=== PATIENT | female | born 1990 | race Caucasian/White ===

== ENCOUNTER → 2019-11-20 13:45 | Outpatient (CLI) | payer BC, SELFPAY ==
--- NOTE | ~2019-11-20 | US_ITS ---
EXAMINATION: US OB transvaginal EXAM DATE: 11/20/2019 14:13 INDICATION: , vaginal spotting. First trimester. TECHNIQUE: Pelvic obstetrical transabdominal sonogram was performed by a technologist. There are mu ltiple grayscale and Doppler images available for interpretation. There are no earlier studies of th is gestation for comparison. FINDINGS: Uterus measures 9.5 x 5.0 x 6.0 cm. There is intrauterine gestation sac. pole with heart rate confirmed at 169 beats per minute. The 1.4 cm crown-rump length corresponds to estimated gestational age by ultrasound of 7 weeks 4 days, estimated date of confinement 07/04/2020. Yolk sac is identified. There is small subchorionic hemorrhage measuring 5 x 4 x 5 mm. The ovaries are morp hologically normal. IMPRESSION: Early live intrauterine gestation, small subchorionic hemorrhage. Reviewed, dictated and finalized at location A.
== END ==
PROVIDERS: Visit Provider Nurse Practitioner
DX: O26.851 Spotting complicating pregnancy, first trimester (principal); O36.8911 Maternal care for other specified fetal problems, first trimester, fetus 1
CPT/HCPCS: 76817

== ENCOUNTER 2019-11-20 14:27 | Outpatient (RCR) | payer BC, SELFPAY | END 2020-02-18 23:59 | disposition home or self-care (01) | LOC: ANHLAB 14:27 | PROVIDERS: Visit Provider Nurse Practitioner | DX: O26.851 Spotting complicating pregnancy, first trimester (principal); Z3A.00 Weeks of gestation of pregnancy not specified | CPT/HCPCS: 36415; 86900; 86901 ==

== ENCOUNTER → 2019-12-05 14:15 | Outpatient (CLI) | payer BC, SELFPAY ==
--- NOTE | ~2019-12-05 | US_ITS ---
EXAMINATION: US OB transvaginal DATE: 12/05/2019 15:38 INDICATION: Follow-up subchorionic hemorrhage TECHNIQUE: Real-time transabdominal and transvaginal obstetric ultrasound. FINDINGS: Comparison ultrasound dated 11/20/2019 The uterus measures 10 x 6 x 7.3 cm. There is an intrauterine gestational sac, with pole identi fied. The crown rump length measures 3.07 cm. heart tones are identified measuring 176 BPM. No evidence for residual subchorionic hemorrhage. Left ovary is unremarkable measuring 3.6 x 1.8 x 1. 9 cm. IMPRESSION: 1. SL IUP with an EGA of 9 weeks, 5 days (EDC by initial ultrasound of 07/04/2020). Appropriate inter daisy growth. 2: Interval resolution of subchorionic hemorrhage. Reviewed, dictated and finalized at location A. IMPRESSION: 1. SL IUP with an EGA of 9 weeks, 5 days (EDC by initial ultrasound of 07/04/20 20). Appropriate interval growth. 2: Interval resolution of subchorionic hemorrhage.
== END ==
PROVIDERS: Visit Provider Obstetrics & Gynecology
DX: O36.8910 Maternal care for other specified fetal problems, first trimester, not applicable or unspecified (principal); Z3A.09 9 weeks gestation of pregnancy
CPT/HCPCS: 76817

== ENCOUNTER 2020-02-05 10:17 | Outpatient (CLI) | payer BC, SELFPAY ==
--- NOTE | ~2020-02-05 | US_ITS ---
EXAMINATION: US OB /maternal detail DATE: 02/05/2020 11:32 INDICATION: anatomic survey. TECHNIQUE: Real-time ultrasound of the pelvis was performed. COMPARISON: Ultrasound 12/05/2019, 11/20/2019 FINDINGS: There is a single living fetus in vertex presentation. The placenta is posterior. heart rate i s 121 beats per minute (bpm). The amniotic fluid volume is subjectively normal. The following biometric data were obtained: Biparietal diameter (BPD): 4.4 cm; head circumference (HC): 16.6 cm; abdominal circumference (AC): 15 .0 cm; femur length (FL): 3.1 cm. These measurements are concordant. Estimated weight is 314 g +/- 47 g, which correlates with >97th percentile when 07/04/20 is use d as estimated date of delivery. As single measurements, these parameters are each equal to the following estimated gestational ages w ith ranges of +/- 2 standard deviations: BPD: 19 weeks 2 days (17 weeks 4 days - 21 weeks 0 days). HC: 19 weeks 2 days (17 weeks 6 days - 20 weeks 6 days). AC: 20 weeks 2 days (18 weeks 1 days - 22 weeks 2 days). FL: 19 weeks 3 days (17 weeks 5 days - 21 weeks 2 days). estimated gestational age based solely on measurements from this exam is 19 weeks 4 days +/- 1 weeks 3 days. The cerebral ventricles, cerebellum, cisterna magna, nuchal fold, and visualized portions of the spin e are normal. The heart is normal. The diaphragm, stomach, kidneys, and bladder are normal. There are two umbilical arteries to yield a 3-vessel cord. The cord insertion is normal. IMPRESSION: 1. Single living fetus in vertex presentation. 2. Large for gestational age. Estimated weight is 314 g +/- 47 g, which correlates with >97th percentile when 07/04/20 is used as estimated date of delivery. This date was set by ultrasound on 06/2020. 3. Normal anatomic survey. Reviewed, dictated and finalized at location A. IMPRESSION: 1. Single living fetus in vertex presentation. 2. Large for gestational age. Estimated weight is 314 g +/- 47 g, which correlates with >97th percentile when 07/04/20 is used as estimated date of riley wu. This date was set by ultrasound on 11/20/2019. 3. Normal anatomic survey.
== END 2020-02-05 10:18 | disposition home or self-care (01) ==
PROVIDERS: Visit Provider Obstetrics & Gynecology
DX: Z34.02 Encounter for supervision of normal first pregnancy, second trimester (principal); Z3A.19 19 weeks gestation of pregnancy
CPT/HCPCS: 76805

== ENCOUNTER 2020-07-05 04:52 | Inpatient (IN) | payer OTHER, SELFPAY ==
[2020-07-05] VITALS (123 sets, daily range): BP systolic 68–136; BP diastolic 45–106; PULSE 61–251; RESP 16–20; TEMP 36.9–37.3; O2SAT 92–100; BMI 33.4
--- NOTE | 2020-07-05 05:16 | LDADM ---
This patient, Reina Evans, was admitted to Labor/Delivery/Recovery 104 on 07/05/20 at 04:52. Plans for labor, pain management and were discussed with patient. Patient/family oriented to hospital policies and general routines including ID bracelet, bed and alarms, visiting hours, pain management, procedures, bathroom and other care routines, personal items, smoking policy, room service/diet and guest tray routines, infant security routines, and visiting hours. Patient/Family are encouraged to report perceived risks to care and to ask questions if they do not understand what they are told or what they should do. See OBIX for further documentation.
[2020-07-05 05:38] LABS: Basophils Absolute Auto 0.1 K/mm3 (0.0-0.1); Basophils Percent Auto 0.4 % (0.2-1.2); Eosinophils Absolute Auto 0.1 K/mm3 (0-0.3); Eosinophils Percent Auto 0.4 % (0-4.4); Hematocrit 37.5 % (37.0-47.0); Hemoglobin 12.1 g/dL (12.0-15.0); Immature Granulocyte Absolute 0.35 K/mm3 (0.00-0.031); Immature Granulocyte Percent A 1.9 % (0-0.5); Lymphocytes Absolute Auto 2.04 K/mm3 (0.9-3.2); Lymphocytes Percent Auto 11.1 % (18.3-44.2); Mean Corpuscular HGB Conc 32.3 g/dl (32-36); Mean Corpuscular Hemoglobin 27.2 pg (26-34); Mean Corpuscular Volume 84.3 fl (80-100); Mean Platelet Volume 10.4 fl (7.4-10.4); Monocytes Absolute Auto 1.2 K/mm3 (0.1-0.6); Monocytes Percent Auto 6.6 % (2.6-8.5); Neutrophils Absolute Auto 14.7 K/mm3 (1.3-6.7); Neutrophils Percent Auto 79.6 % (45.5-73.1); Platelet Count Result 256 k/mm3 (150-375); Red Blood Count 4.45 M/mm3 (4.2-5.4); Red Cell Distribution Width 20.8 % (11.5-14.5); White Blood Count 18.5 K/mm3 (4.5-10.0)
[2020-07-05] MEDS: AMPICILLIN 2 GM/NS 100 ML 2 GM/100 ML BAG IVPB (05:42)
[2020-07-05] MEDS: LACTATED RINGERS 1,000 ML 125 ML IV CONT ×3 (05:42→13:41)
[2020-07-05] MEDS: OXYTOCIN 30 UNITS/NS 500 ML 30 UNITS/500 ML BAG 6 UNITS IV CONT (08:00)
[2020-07-05] MEDS: AMPICILLIN 1 GM/NS 50 ML 1 GM/50 ML BAG IVPB ×3 (10:05→18:05)
--- NOTE | 2020-07-05 10:49 | WPDOBADMIT ---
Obstetrics - Admit Note Admission Note: record reviewed. No pertinent additions to the history and/or any subsequent changes in the physical findings that are not consistent with the expected course of the were found. Additions to the history and/or subsequent changes in the physical findings follow. None.Here for MIL. Cervix now /-2 SROM earlier. FHTS reactive.
[2020-07-05] MEDS: fentaNYL CITRATE INJ (*CRX) 100 MCG/2 ML VIAL IV PUSH (11:24)
[2020-07-05] MEDS: PHENYLEPHRINE 1,000 MCG/10 ML SYRINGE 100 MCG IV PUSH (11:57)
--- NOTE | 2020-07-05 11:57 | WPDANESEPP ---
Anes - Eval Pre Procedure Procedure: Labor Epidural Date/Time: 07/05/20 11:57 Surgeon: Hossein Preop Diagnosis: Labor Pain Pre Op Diagnosis: Induction of Labor Patient Data Age: 30 Gender: F Height: 5 ft 6 in Weight: 94 kg Last Vital Signs Temp 37.1 C 07/05/20 08:49 Pulse 71 07/05/20 11:55 BP 101/53 L 07/05/20 11:55 Pulse Ox 97 07/05/20 11:52 Allergies Allergy/AdvReac Type Severity Reaction Status Date / Time No Known Allergies Allergy Verified 06/05/20 12:36 Home Medications Medication Instructions Recorded Confirmed Type PNV cmb#95-ferrous fumarate-FA 1 tablet PO DAILY 06/05/20 06/05/20 History [] ergocalciferol (vitamin D2) 1,250 mcg PO WEEKLY 06/05/20 06/05/20 History [Vitamin D2] Laboratory Tests 07/05/20 07/05/20 07/05/20 05:26 05:26 05:26 WBC 18.5 K/mm3 H K/mm3 (4.5-10.0) RBC 4.45 M/mm3 M/mm3 (4.2-5.4) Hgb 12.1 g/dL g/dL (12.0-15.0) Hct 37.5 % % (37.0-47.0) MCV 84.3 fl fl (80-100) MCH 27.2 pg pg (26-34) MCHC 32.3 g/dl g/dl (32-36) RDW 20.8 % H % (11.5-14.5) Plt Count 256 k/mm3 k/mm3 (150-375) MPV 10.4 fl fl (7.4-10.4) Immature Gran % (Auto) 1.9 % H % (0-0.5) Neut % (Auto) 79.6 % H % (45.5-73.1) Lymph % (Auto) 11.1 % L % (18.3-44.2) [place] % (Auto) 6.6 % % (2.6-8.5) Eos % (Auto) 0.4 % % (0-4.4) Baso % (Auto) 0.4 % % (0.2-1.2) Lymph # (Auto) 2.04 K/mm3 K/mm3 (0.9-3.2) [place] # (Auto) 1.2 K/mm3 H K/mm3 (0.1-0.6) Eos # (Auto) 0.1 K/mm3 K/mm3 (0-0.3) Baso # (Auto) 0.1 K/mm3 K/mm3 (0.0-0.1) Abs Immat Gran (auto) 0.35 K/mm3 H K/mm3 (0.00-0.031) Absolute Neuts (auto) 14.7 K/mm3 H K/mm3 (1.3-6.7) Absolute Nucleated RBC 0.0 K/mm3 K/mm3 (0.0-0.012) Nucleated RBC % 0.0 % % (0.0-0.2) RPR Pending Blood Type A Positive Antibody Screen Negative : gestational age (CHELO 07/04/20) Patient hx anesthesia problems: none Family hx anesthesia problems: none PMFSH Family History Family History Other No pertinent family history Social History Social History Smoking status: Never smoker Substance use: never Gender identity (if verbalized by the patient): Female Spiritual care concerns: No Exam Day of Procedure 07/05/20 11:57 Patient weight: normal Heart: regular rate and rhythm Lungs: normal air movement Airway: Mallampati scale class II Neurological: alert and oriented
[2020-07-05] MEDS: FAMOTIDINE 20 MG/2 ML VIAL IV PUSH (17:35)
[2020-07-05] MEDS: METHYLERGONOVINE MALEATE 0.2 MG TABLET (20:34)
--- NOTE | 2020-07-05 20:43 | P.PCNOB_ITS ---
OB - Delivery Note Procedure Delivery date: 07/05/20 Procedure: events: Labor Induction (at 40 wks) Induction method: per pitocin protocol Delivery monitor: external FHT and external uterine Route of delivery: Episiotomy description: Midline Delivery repair: vicryl (3-0 vicryl) Specimen: Yes (placenta) Estimated blood loss (mL): 400 Anesthesia type: Epidural Disposition: floor Complications: pp atony responded to massage, pitocin, and one dose methergine Narrative: terminal bradycardia over last 3 contractions [place] Baby Date of : 07/05/20 Weeks of gestation at delivery: 40 Infant gender: Female Weight (pounds): 8 Weight (ounces): 3 presentation: vertex position: Right Occiput Anterior Placenta delivery description: Spontaneous cord vessel description: Nuchal Cord (delivered through) score one minute: 2 score five minutes: 4 score ten minutes: 6 Narrative: at 15 min 8
--- NOTE | 2020-07-05 20:46 | PM.OBDSVD ---
DS: Admitting Diagnosis Admitting Diagnosis Admitting Diagnosis: Induction of Labor 40 wks DS: Discharge Diagnosis Discharge Diagnosis (1) (normal spontaneous vaginal delivery): Code(s): O80 - Encounter for full-term uncomplicated delivery Status: Acute OB - DS: Summary OB Procedures : Ultrasound OB Procedures Intrapartum: Spontaneous Vag Delivery OB Procedures: : None Peripartum Data Delivery Method: Natural Vaginal Laceration description: None Episiotomy description: Midline complications: uterine atony (responded to massage, pitocin, and one dose methergine 400 EBL) Status at Discharge Functional status at discharge: independent ambulation Overall status at discharge: patient is progressing back to baseline Time Spent with Patient Time attestation: Total time spent providing and/or coordinating discharge services: DS: Data Data Completed and Pending Labs on day of discharge: Labs from last 24 hours 07/05/20 07/05/20 07/05/20 05:26 05:26 05:26 WBC 18.5 H RBC 4.45 Hgb 12.1 Hct 37.5 MCV 84.3 MCH 27.2 MCHC 32.3 RDW 20.8 H Plt Count 256 MPV 10.4 Immature Gran % (Auto) 1.9 H Neut % (Auto) 79.6 H Lymph % (Auto) 11.1 L [place] % (Auto) 6.6 Eos % (Auto) 0.4 Baso % (Auto) 0.4 Lymph # (Auto) 2.04 [place] # (Auto) 1.2 H Eos # (Auto) 0.1 Baso # (Auto) 0.1 Abs Immat Gran (auto) 0.35 H Absolute Neuts (auto) 14.7 H Absolute Nucleated RBC 0.0 Nucleated RBC % 0.0 RPR Pending Blood Type A Positive Antibody Screen Negative Discharge Plan Discharge Attending physician on discharge: Cydney Church Discharging Clinician: Cydney Church Anticipated Discharge Date/Time: 07/07/20 08:48 Patient Disposition: Home, Self-Care Activity: may shower and pelvic rest Diet: regular Patient Instructions: Antibiotic Form Stand Alone Forms: General Discharge Information Follow-up/Referrals: Daniel Catalan MD [Physician] - 6 Weeks Discharge Medications: Continued ergocalciferol (vitamin D2) [Vitamin D2] 1,250 mcg (50,000 unit) Capsule 1,250 mcg PO WEEKLY RF: 0 Discontinued PNV cmb#95-ferrous fumarate-FA [] 28 mg iron- 800 mcg Tablet 1 tablet PO DAILY RF: 0 Date of admission: 07/05/20 04:52 Primary Care Provider: MattTeresa Admitting Provider: Daniel Catalan Attending physician on admission: Daniel Catalan Condition: Stable
[2020-07-05] MEDS: OXYTOCIN 30 UNITS/NS 500 ML 30 UNITS/500 ML BAG 125 UNITS IV CONT (20:57)
[2020-07-05] MEDS: BENZOCAINE 20% AER SPR (*SP) 56 GM CAN 1 SPRAY TOPICAL (22:46)
[2020-07-05] MEDS: IBUPROFEN 600 MG TABLET PO (22:46)
[2020-07-05] MEDS: WITCH HAZEL 40 PADS 1 PAD TOPICAL (22:46)
[2020-07-06 03:20] LABS: Hematocrit 32.1 % (37.0-47.0); Hemoglobin 10.3 g/dL (12.0-15.0)
[2020-07-06 08:00] VITALS: BP 113/65; PULSE 94; RESP 16; TEMP 36.6; O2SAT 97
[2020-07-06] MEDS: MULTIVIT/MIN/PREN/FOL AC/IRON TABLET 1 TAB PO (08:07)
[2020-07-06] MEDS: DOCUSATE SODIUM 100 MG CAPSULE PO (08:08)
[2020-07-06] MEDS: IBUPROFEN 600 MG TABLET PO ×2 (08:08→14:18)
--- NOTE | 2020-07-06 08:23 | PM.OBPNVD ---
OB - PN: Subj Subjective Date/time seen: 07/06/20 08:23 Patient comments: no complaints and pain well controlled baby status: doing well OB - PN: Obj Data Labs CBC & Chem 7: 07/06/20 03:14 Labs: Laboratory Results - last 24 hr 07/06/20 03:14 Hgb 10.3 L Hct 32.1 L OB - PN A/P Plan day: 1 Plan: routine care Time Spent With Patient Time: Total time spent is greater than 50% in coordination of care (as documented) at patient's floor/unit and/or counseling patient: Exam : Bimanual exam- vagina & uterus: other (Uterus firm, nt @U)
[2020-07-06 19:45] VITALS: BP 116/68; PULSE 93; RESP 18; TEMP 36.7; O2SAT 97
--- NOTE | 2020-07-07 08:49 | P.PNOB_ITS ---
OB - PN: Subj Subjective Date/time seen: 07/07/20 08:49 Patient comments: no complaints and pain well controlled baby status: bottle feeding well OB - PN: Obj Data Labs CBC & Chem 7: 07/06/20 03:14 OB - PN A/P Plan day: 2 Plan: routine care, discharge home and other (Plans oc's and is bottle feeding. Will call office for Rx as unsure of brand.) Time Spent With Patient Time: Total time spent is greater than 50% in coordination of care (as documente d) at patient's floor/unit and/or counseling patient: Exam : Bimanual exam- vagina & uterus: other (Uterus firm, nt @U)
[2020-07-07] MEDS: DOCUSATE SODIUM 100 MG CAPSULE PO (09:52)
[2020-07-07] MEDS: IBUPROFEN 600 MG TABLET PO (09:52)
[2020-07-07] MEDS: MEASLES,MUMPS,RUBELLA VACCINE 0.5 ML VIAL SUB-Q (09:53)
[2020-07-07 09:56] VITALS: BP 128/77; PULSE 80; RESP 16; TEMP 36.7; O2SAT 98
[2020-07-07 11:55] LABS: Rapid Plasma Reagin Non-Reactive (NonReactive)
--- NOTE | 2020-07-07 12:45 | PC.NURSE ---
Consult with pt., mother reports she attempted infant to breast a few times and had decided she does not care to breastfeed and will pump and bottle feed EBM. Offered assist with if mother wishes, mother does not wish to attempt to breast. Reviewed instructions breast pump care and usage, pumping schedule, nipple care, and collection and storage of breast milk. Encouraged [id number], breast massage and manual expression to stimulate supply. Pumping log provided and reviewed. Assessed patient for correct flange size, placement and draw. Patient verbalizes and demonstrates understanding of instructions. Mother is currently feeding to satisfaction. Discussed when to increase amount of feeding Mother is feeding as required and waking infant to feed if needed. bottle feeding without out issue, is currently meeting outcomes for weight, output, jaundice and feeding frequencies. Mother states she feels confident to continue current feeding plan at home. Reviewed transition to breast milk, signs of adequate intake, and engorgement/relief. Instructed to call ICP if intake/output less than required. Reviewed regular medications mother is taking. Information provided per [facility]. Reviewed community resources on the [facility] website and in the Mom/Baby guide. Information on outpatient services provided. Mother has no further questions at this time.
[2020-07-08 08:50] VITALS: BP 127/77; PULSE 84; RESP 20; TEMP 36.8; O2SAT 99
== END 2020-07-07 19:03 | disposition home or self-care (01) | DRG 807 ==
LOC: ANHLDR 20:50 → ANHOB2 07-07 11:05 → ANHLDR 07-08 11:07 → ANHOB2 07-08 11:07
PROVIDERS: Admitting Provider Obstetrics & Gynecology Gynecology; PCP Family Medicine; Visit Provider Obstetrics & Gynecology Gynecology
DX: O99.824 Streptococcus B carrier state complicating childbirth (principal); Z37.0 Single live birth; O76 Abnormality in fetal heart rate and rhythm complicating labor and delivery; O69.81X0 Labor and delivery complicated by cord around neck, without compression, not applicable or unspecified; Z3A.40 40 weeks gestation of pregnancy
CPT/HCPCS: 36415; 85014; 85018; 85025; 86592; 86850; 86900; 86901; 88307; 88312; 90710; A9270; J0290; J2370; J2590; J2795; J3010; J7120